=== PATIENT | male | born 1990 | race Caucasian/White ===

== ENCOUNTER → 2018-01-23 | Outpatient (CLI) | payer OTHER ==
[2018-01-23 08:17] LABS: BASOPHIL % 0.7 % (0.0-2.0); EOSINOPHIL # 0.1 TH/MM3 (0-0.4); EOSINOPHIL % 1.2 % (0.0-4.0); HEMATOCRIT 45.1 % (39.0-51.0); HEMOGLOBIN 15.2 GM/DL (13.0-17.0); LYMPHOCYTE # 3.7 TH/MM3 (1.0-4.8); MEAN CELL VOLUME 90.7 FL (80.0-100.0); MEAN CORPUSCULAR HEMOGLOBIN 30.6 PG (27.0-34.0); MEAN CORPUSCULAR HGB CONC 33.8 % (32.0-36.0); MEAN PLATELET VOLUME 7.5 FL (7.0-11.0); MONO % 9.2 % (0.0-8.0); MONOCYTE # 0.6 TH/MM3 (0-0.9); NEUT % 30.9 % (16.0-70.0); PLATELET COUNT 250 TH/MM3 (150-450); RED BLOOD COUNT 4.98 MIL/MM3 (4.50-5.90); RED CELL DISTRIBUTION WIDTH 12.6 % (11.6-17.2); WHITE BLOOD COUNT 6.4 TH/MM3 (4.0-11.0)
[2018-01-23 08:47] LABS: ALKALINE PHOSPHATASE 76 U/L (45-117); ALT (GPT) 25 U/L (12-78); TOTAL BILIRUBIN ADULT 0.5 MG/DL (0.2-1.0); TOTAL PROTEIN 7.6 GM/DL (6.4-8.2)
[2018-01-23 08:49] LABS: ALBUMIN 4.1 GM/DL (3.4-5.0); AST (GOT) 39 U/L (15-37); BICARBONATE 31.3 MEQ/L (21.0-32.0); BLOOD UREA NITROGEN 15 MG/DL (7-18); CHLORIDE 105 MEQ/L (98-107); CREATININE 1.09 MG/DL (0.60-1.30); GLOMERULAR FILTRATION RATE 82 ML/MIN (>89); GLUCOSE,FASTING 87 MG/DL (74-99); SODIUM (NA) 142 MEQ/L (136-145)
== END ==
LOC: CLAB 07:39
PROVIDERS: ATTEND Nurse Practitioner Family
DX: Z00.00 Encounter for general adult medical examination without abnormal findings (principal); Z11.3 Encounter for screening for infections with a predominantly sexual mode of transmission
CPT/HCPCS: 36415; 80053; 85025; 86703